=== PATIENT | male | born 1965 | race Caucasian/White ===

== ENCOUNTER 2017-05-25 21:41 | Emergency (ER) | payer SELFPAY ==
[2017-05-25 21:59] VITALS: BP 118/69
[2017-05-25] MEDS ORDERED: POLYMYXIN B SULFATE/TMP OPH SOLN (10 ML/ER DISP) OD ONE (23:47)
--- NOTE | 2017-05-25 23:48 | ER Document Report ---
HPI - HPI Pain Level: 5 Context: Patient is a 51-year-old male who presents with right eye foreign body sensation for 3 days. His alternating at home for it. States that light makes it hurt but otherwise denies any vision changes. Tetanus up-to-date within the past 5 years - CONSTITUTIONAL Constitutional: DENIES: Fever, Chills - EENT EENT: REPORTS: Eye problems - R eye - FB - metal? 3 day. DENIES: Sore Throat, Ear Pain - NEURO Neurology: DENIES: Headache, Weakness, Vision blurred, Dizzinesss / Vertigo - CARDIOVASCULAR Cardiovascular: DENIES: Chest pain - RESPIRATORY Respiratory: DENIES: Trouble Breathing, Coughing - GASTROINTESTINAL Gastrointestinal: DENIES: Abdominal Pain, Black / Bloody Stools - URINARY Urinary: DENIES: Dysuria, Urgency, Frequency - REPRODUCTIVE Reproductive: DENIES: : - MUSCULOSKELETAL Musculoskeletal: DENIES: Extremity pain Past Medical History - Social History Smoking Status: Unknown if Ever Smoked Family History: Reviewed & Not Pertinent Patient has suicidal ideation: No Patient has homicidal ideation: No Renal/ Medical History: Denies: Hx Peritoneal Dialysis Psychiatric Medical History: Reports: Hx Depression - Immunizations Hx Diphtheria, Pertussis, Tetanus Vaccination: Yes Vertical Provider Document - CONSTITUTIONAL Agree With Documented VS: Yes Notes: PHYSICAL EXAM GENERAL: Alert, interacts well. HEAD: Normocephalic, atraumatic. EYES: FB noted on conjunctiva of right eye Pupils equal, round, and reactive to light. Extraocular movements intact. eyelid everted without FB, erythema. NEUROLOGICAL: Alert and oriented x4. Normal speech. SKIN: Warm, dry, normal turgor. No rashes or lesions noted. - INFECTION CONTROL TRAVEL OUTSIDE OF THE [place] IN LAST 30 DAYS: No - RESPIRATORY O2 Sat by Pulse Oximetry: 97 Course - Re-evaluation Re-evalutation: Patient is a 51-year-old male is hemodynamically stable, no acute distress and afebrile. Foreign body was removed at the bedside. Also noted on the surface of his eye patient initiated on antibiotic drops and eye patch placed. Tetanus is already up-to-date given referral for ophthalmology to follow-up today. Patient agrees to plan and stable for discharge home - Vital Signs Vital signs: Temp Pulse Resp BP Pulse Ox 97.6 F 85 118/69 97 05/25/17 21:58 05/25/17 21:58 05/25/17 21:58 05/25/17 21:58 Discharge - Discharge Clinical Impression: Eye foreign body Qualifiers: Encounter type: initial encounter Laterality: right Qualified Code(s): T15.91XA - Foreign body on external eye, part unspecified, right eye, initial encounter Condition: Good Disposition: HOME, SELF-CARE Instructions: Corneal Foreign Body ([facility]) Additional Instructions: Instill 1 drop in affected eye(s) every 3 hours (maximum: 6 doses per day) for 7 -10 days Referrals: ANNE AYOUB MD [ACTIVE STAFF] - Follow up tomorrow
== END 2017-05-26 00:10 | disposition home or self-care (01) ==
LOC: ER 21:41
PROC: 08CSXZZ Extirpation of Matter from Right Conjunctiva, External Approach (ICD-10-PCS; principal; 2017-05-25)
DX: T15.11XA Foreign body in conjunctival sac, right eye, initial encounter (principal); X58.XXXA Exposure to other specified factors, initial encounter
CPT/HCPCS: 99283; 65205; J3490

== ENCOUNTER 2019-10-05 19:20 | Emergency (ER) | payer SELFPAY ==
--- NOTE | 2019-10-05 22:01 | EKG REPORT ---
SEVERITY:- BORDERLINE ECG - SINUS RHYTHM BORDERLINE ST ELEVATION, INFERIOR LEADS TALL T WAVES ? HYPERKALEMIA : Confirmed by: Yajaira Ivy MD 05-Oct-2019 22:01:09
== END 2019-10-05 20:30 | disposition left against medical advice (07) ==
LOC: ER 19:20
DX: Z53.21 Procedure and treatment not carried out due to patient leaving prior to being seen by health care provider (principal)
CPT/HCPCS: 93005; 93010